=== PATIENT | female | born 1985 | race African-American/Black ===

== ENCOUNTER 2018-03-08 14:50 | Emergency (ER) | payer BC, MEDICAID ==
[~2018-03-08] VITALS: Ht 167.6 cm; Wt 58.0 kg
[2018-03-08] MEDS ORDERED: ZIPRASIDONE 20 MG INJ IM ONE ×2 (15:00→15:02)
[2018-03-08 15:39] LABS: BASOPHILS # (AUTO) 0.05 x10^3/uL (0-0.1); BASOPHILS % (AUTO) 1 % (0-1); EOSINOPHILS # (AUTO) 0.11 x10^3/uL (0-0.4); EOSINOPHILS % (AUTO) 1 % (1-7); LYMPHOCYTES # (AUTO) 2.11 x10^3/uL (1-3.4); LYMPHOCYTES % (AUTO) 25 % (22-44); MD NO; MEAN CORPUSCULAR HEMOGLOBIN 34.5 pg (27.0-34.8); MEAN CORPUSCULAR HGB CONC 34.1 g/dL (32.4-35.8); MEAN CORPUSCULAR VOLUME 101.2 fL (80-100); MONOCYTES # (AUTO) 0.69 x10^3/uL (0.2-0.8); MONOCYTES % (AUTO) 8 % (2-9); NEUTROPHILS % (AUTO) 65 % (42-75); PLATELET COUNT 369 x10^3/uL (130-400); RED BLOOD COUNT 3.71 x10^6/uL (3.82-5.3); RED CELL DISTRIBUTION WIDTH 13.6 % (9.6-15.2)
[2018-03-08 15:55] LABS: ALANINE AMINOTRANSFERASE 39 U/L (12-78); ALBUMIN 3.9 g/dL (3.4-5.0); ANION GAP 7 mmol/L (5-15); CALCIUM 9.5 mg/dL (8.5-10.1); CHLORIDE 110 mmol/L (98-107)
[2018-03-08 16:09] LABS: ACETAMINOPHEN < 2 mcg/mL (10-30); ALKALINE PHOSPHATASE 83 U/L (45-117); BILIRUBIN,TOTAL 0.8 mg/dL (0.2-1.0); SALICYLATE LEVEL 4.1 mg/dL (2.8-20.0); TOTAL PROTEIN 7.4 g/dL (6.4-8.2)
[2018-03-08] MEDS ORDERED: LORazepam 1MG TABLET PO ONE (16:30)
[2018-03-08] MEDS ORDERED: LORazepam 1MG TABLET ONE (16:49)
[2018-03-08] MEDS ORDERED: ACETAMINOPHEN 325 MG TABLET PO PRN (19:00)
[2018-03-08] MEDS ORDERED: ZIPRASIDONE 20 MG INJ IM PRN (19:00)
[2018-03-08] MEDS ORDERED: ONDANSETRON ODT 4 MG PO PRN (19:00)
[2018-03-08] MEDS ORDERED: POLYETHYLENE GLYCOL 17 GM PACKET PO PRN (19:00)
[2018-03-09 01:37] LABS: AMPHETAMINE SCREEN, URINE Positive (Negative); BARBITURATE SCREEN, URINE Negative (Negative); BENZODIAZEPINE SCREEN, URINE Negative (Negative); CANNABINOID SCREEN, URINE Positive (Negative); COCAINE SCREEN, URINE Negative (Negative); METHADONE SCREEN, URINE Negative (Negative); OPIATE SCREEN, URINE Negative (Negative)
[2018-03-09 08:07] VITALS: BP 118/67
== END 2018-03-09 20:08 ==
LOC: ED 18:23 → UNDOADMIN 18:32 → EDIP 18:32 → ED 03-09 20:08
DX: F20.89 Other schizophrenia (principal); F29 Unspecified psychosis not due to a substance or known physiological condition
CPT/HCPCS: 36415; 80053; 80307; 80329; 85025; 96372; 99285; J3486; 96374; G0480

== ENCOUNTER 2020-01-09 06:29 | Emergency (ER) | payer MEDICAID, OTHER ==
[~2020-01-09] VITALS: Ht 177.8 cm; Wt 96.6 kg
[2020-01-09 06:36] VITALS: BP 120/69
--- NOTE | 2020-01-09 06:58 | NUR ---
PT IN RAD.
--- NOTE | 2020-01-09 08:03 | NUR ---
PT RESTING ON [employer] W/ CALL LIGHT IN REACH, TALKING ON PHONE. RESP EVEN AND UNLABORED,
--- NOTE | 2020-01-09 09:08 | NUR ---
Patient given discharge instructions and they have confirmed that they understand the instructions. Patient ambulatory with steady gait.
== END 2020-01-09 09:09 | disposition home or self-care (01) ==
LOC: ED 07:07
DX: S16.1XXA Strain of muscle, fascia and tendon at neck level, initial encounter (principal); S80.02XA Contusion of left knee, initial encounter; R07.9 Chest pain, unspecified; V49.9XXA Car occupant (driver) (passenger) injured in unspecified traffic accident, initial encounter; Y93.89 Activity, other specified; Y92.488 Other paved roadways as the place of occurrence of the external cause; Y99.8 Other external cause status
CPT/HCPCS: 71045; 72020; 99284